=== PATIENT | female | born 1955 | race Caucasian/White ===

== ENCOUNTER 2016-06-22 16:49 | Emergency (ER) | payer OTHER ==
[~2016-06-22] VITALS: Wt 54.5 kg
[~2016-06-22 16:49] MED LIST: ALBU8.5H5 INH; NAPR-260 PO
--- NOTE | 2016-06-22 17:38 | RADRPT ---
PROCEDURE: CT Brain without contrast. CLINICAL INDICATION: Trauma. Pain. TECHNIQUE: Serial axial computed tomographic images of the brain was performed on a multidetector CT scanner from the skull base through the vertex without contrast. CTDlvol = 45 mGy and DLP = 720 m Gy-cm. One of the following 3 dose reduction techniques were used: Automated exposure control; adju stment of the mA and/or kV according to patient size; or use of iterative reconstruction technique. COMPARISON: 12/17/2013 FINDINGS: There is no fracture. The ventricles and sulci are normal in size and configuration for age. There is no midline shift. There is no acute stroke. There is mild degree of supratentorial periventric ular and subcortical white matter hypodensities greatest in the bilateral parietal lobes. No acute intracranial hemorrhage or abnormal extra-axial fluid collection. Visualized paranasal sinuses are clear. IMPRESSION: 1. No fracture. 2. No acute post-traumatic intracranial abnormality. 3. Nonspecific white matter changes most commonly seen with small vessel disease. RPTAT: [facility] .Demarco Hernadez MD, Date Time Electronically viewed and signed by .Demarco Hernadez MD, on 06/22/2016 17:38 .K/
[2016-06-22] MEDS ORDERED: TRAM50TA2 PO (17:53)
--- NOTE | 2016-06-22 17:55 | ERD ---
ER Documentation Chief Complaint Date/Time DATE: 06/22/16 TIME: 17:53 Chief Complaint HEAD INJURY FROM 0900 TODAY. NO LOC NO NECK OR BACK PAIN HPI This is a 60-year-old female who says she had a head injury this morning. The patient states she was cleaning in her room and the mirror on her dresser fell forward and hit her on the back of the head. She has a hematoma of the scalp but no laceration. She says she feels a little dizzy today. She states she felt a few seconds loss of consciousness. No headache no vomiting no focal neurological complaints no shortness of breath no excessive sleepiness. ROS All systems reviewed and are negative except as per history of present illness. Medications Home Meds Active Scripts Tramadol HCl (Tramadol HCl) 50 Mg Tablet, 50 MG PO Q6 Y for PAIN, #20 TAB Prov:CARLOS AGUIRRE DO 06/22/16 Naproxen* (Naprosyn*) 500 Mg Tablet, 500 MG PO BID Y for PAIN AND/OR INFLAMMATION, #30 TAB Prov:MELECIO ROLDAN MD 01/06/15 Albuterol Sulfate* (Albuterol Sulfate* HFA) 8.5 Gm Hfa.aer.ad, 1-2 PUFF INH Q4 Y for SHORTNESS OF BREATH, #1 EA Prov:MELECIO ROLDAN MD 01/06/15 Allergies Allergies: Coded Allergies: peanut (Verified Allergy, Unknown, 01/06/15) PMhx/Soc History of Surgery: Yes (C section, tonsillectomy) Anesthesia Reaction: No Hx Neurological Disorder: Yes (TIA) Hx Respiratory Disorders: Yes (ASTHMA) Hx Cardiac Disorders: No Hx Psychiatric Problems: No Hx Miscellaneous Medical Probl: No Hx Alcohol Use: No Hx Substance Use: Yes Hx Tobacco Use: Yes (11 STICKS A DAY) Smoking Status: Former smoker FmHx Family History: No coronary disease Physical Exam Vitals Vital Signs Date Time Temp Pulse Resp B/P Pulse Ox O2 Delivery O2 Flow Rate FiO2 06/22/16 16:54 98.9 102 21 150/63 98 Physical Exam Const: Well-developed, well-nourished Head: Small hematoma at the back of the head., normocephalic Eyes: Normal Conjunctiva, PERRLA, EOMI, normal sclera, no nystagmus ENT: Normal External Ears, Nose and Mouth, moist mucus membranes. Neck: Full range of motion. No meningismus, no lymphadenopathy. Resp: Clear to auscultation bilaterally, no wheezing, rhonchi, rales Cardio: Regular rate and rhythm, no murmurs, S1 S2 present Abd: Soft, non tender x 4, non distended. Normal bowel sounds, no guarding or rebound, no pulsitile abdominal masses or bruits Skin: No petechiae or rashes, no ecchymosis , no maculopapular rash Back: No midline or flank tenderness Ext: No cyanosis, or edema, FROM x 4, normal inspection, neurovascularly intact x 4 Neur: Awake and alert, STR 5/5 x 4, sensation intact x 4, no focal findings, cerebellum intact Psych: Normal Mood and Affect Procedures/MDM PROCEDURE: CT Brain without contrast. CLINICAL INDICATION: Trauma. Pain. TECHNIQUE: Serial axial computed tomographic images of the brain was performed on a multidetector CT scanner from the skull base through the vertex without contrast. CTDlvol = 45 mGy and DLP = 720 mGy-cm. One of the following 3 dose reduction techniques were used: Automated exposure control; adjustment of the mA and/or kV according to patient size; or use of iterative reconstruction technique. COMPARISON: 12/17/2013 FINDINGS: There is no fracture. The ventricles and sulci are normal in size and configuration for age. There is no midline shift. There is no acute stroke. There is mild degree of supratentorial periventricular and subcortical white matter hypodensities greatest in the bilateral parietal lobes. No acute intracranial hemorrhage or abnormal extra-axial fluid collection. Visualized paranasal sinuses are clear. IMPRESSION: 1. No fracture. 2. No acute post-traumatic intracranial abnormality. 3. Nonspecific white matter changes most commonly seen with small vessel disease. RPTAT: [facility] .Demarco Hernadez MD, Date Time Electronically viewed and signed by .Demarco Hernadez MD, on 06/22/2016 17:38 .K/ CC: CARLOS AGUIRRE DO Gave her head precautions Departure Diagnosis: Primary Impression: Acute head injury Encounter type: initial encounter Qualified Code: S09.90XA - Acute head injury, initial encounter Condition: Stable Patient Instructions: Concussion W/ Wake Up Referrals: DOCTOR,NOT ON STAFF (PCP) CARLOS AGUIRRE DO Jun 22, 2016 17:55
== END 2016-06-22 18:07 | disposition home or self-care (01) ==
LOC: FTE 16:49
DX: S09.90XA Unspecified injury of head, initial encounter (principal); J45.909 Unspecified asthma, uncomplicated; F17.210 Nicotine dependence, cigarettes, uncomplicated; R51 Headache; W22.8XXA Striking against or struck by other objects, initial encounter; Y92.9 Unspecified place or not applicable
CPT/HCPCS: 70450; Z7502

== ENCOUNTER 2017-05-11 08:51 | Emergency (ER) | END 2017-05-11 12:49 | disposition left against medical advice (07) ==

== ENCOUNTER 2018-05-15 21:19 | Emergency (ER) | payer OTHER ==
[~2018-05-15] VITALS: Wt 52.0 kg
[~2018-05-15 21:19] MED LIST changes: -NAPR-260 PO; +NAPR-985 PO; +TRAM50TA2 PO
[2018-05-15] MEDS ORDERED: CEPH-443 PO (22:20)
[2018-05-15] MEDS ORDERED: IBUP-1542 PO (22:20)
--- NOTE | 2018-05-15 22:36 | ERD ---
ER Documentation Chief Complaint Chief Complaint BLEEDING ABSCESS ON RIGHT BREAST HPI 62-year-old female presents here to emergency department for complaints of pus coming up from the nipple of the right breast area, sometimes has blood coming out of it, has been having on and off since in affected area denies any symptoms at this time. Patient is complaining of on and off pain sharp pain 4/10 scale, not better or worse with anything, last mammogram was 9 years ago. Patient denies any deformity in the breast area. ROS All systems reviewed and are negative except as per history of present illness. Medications Home Meds Active Scripts Ibuprofen* (Motrin*) 600 Mg Tab, 600 MG PO Q6H PRN for PAIN AND OR ELEVATED TEMP, #30 TAB Prov:SHAUNA PLEITEZ VALET CASHIER 05/15/18 Cephalexin* (Keflex*) 500 Mg Capsule, 500 MG PO QID for 10 Days, CAP Prov:SHAUNA PLEITEZ VALET CASHIER 05/15/18 Tramadol HCl (Tramadol HCl) 50 Mg Tablet, 50 MG PO Q6 PRN for PAIN, #20 TAB Prov:CARLOS AGUIRRE DO 06/22/16 Naproxen* (Naprosyn*) 500 Mg Tablet, 500 MG PO BID PRN for PAIN AND/OR INFLAMMATION, #30 TAB Prov:MELECIO ROLDAN MD 01/06/15 Albuterol Sulfate* (Albuterol Sulfate* HFA) 8.5 Gm Hfa.aer.ad, 1-2 PUFF INH Q4 PRN for SHORTNESS OF BREATH, #1 EA Prov:MELECIO ROLDAN MD 01/06/15 Allergies Allergies: Coded Allergies: peanut (Verified Allergy, Unknown, 01/06/15) PMhx/Soc History of Surgery: Yes (C section x 3, tonsillectomy) Anesthesia Reaction: No Hx Neurological Disorder: Yes (TIA) Hx Respiratory Disorders: Yes Hx Cardiac Disorders: No Hx Psychiatric Problems: No Hx Miscellaneous Medical Probl: No Hx Alcohol Use: No Hx Substance Use: Yes (Cocaine last one yesterday) Hx Tobacco Use: Yes (11 STICKS A DAY) Smoking Status: Current every day smoker FmHx Family History: No diabetes, No coronary disease, No other Physical Exam Vitals Vital Signs Date Temp Pulse Resp B/P (MAP) Pulse Ox O2 O2 Flow FiO2 Time Delivery Rate 05/15/18 98.1 84 18 160/74 98 21:23 (102) Physical Exam GENERAL: The patient is well developed and appropriate for usual state of health, in no apparent distress. CHEST: Clear to auscultation bilaterally. There are no rales, wheezes or rhonchi. Mild erythema noted in the nipple area, purulent discharge noted to be coming up of the right breast with some serosanguineous discharge. No palpable cyst or abscess at this time. HEART: Regular rate and rhythm. No murmurs, clicks, rubs or gallops. No S3 or S4. ABDOMEN: Soft, nontender and nondistended. Good bowel sounds. No rebound or guarding. No gross peritonitis. No gross organomegaly or masses. No Mendoza sign or McBurney point tenderness. BACK: No midline or flank tenderness. EXTREMITIES: Equal pulses bilaterally. There is no peripheral clubbing, cyanosis or edema. No focal swelling or erythema. Full range of motion. Grossly neurovascularly intact. NEURO: Alert and oriented. Cranial nerves 2-12 intact. Motor strength in all 4 extremities with 5/5 strength. Sensation grossly intact. Normal speech and gait. SKIN: There is no apparent rash or petechia. The skin is warm and dry. HEMATOLOGIC AND LYMPHATIC: There is no evidence of excessive bruising or lymphedema. No gross cervical, axillary, or inguinal lymphadenopathy. Procedures/MDM Medical decision making: Symptoms consistent with some form of mastitis, no abscess noted at this time, no symptoms of any sepsis. Patient was advised to see breast specialist for possible mammogram or ultrasound for further evaluation and management, Keflex was given to treat infection, patient was advised to return to emergency department for new or worsening symptoms. Disposition: Home. Stable Departure Diagnosis: Primary Impression: Mastitis Condition: Stable Patient Instructions: SHAUNA Horta NP May 15, 2018 22:36
== END 2018-05-15 22:34 | disposition home or self-care (01) ==
LOC: FTE 21:19
DX: N61.0 Mastitis without abscess (principal); F17.210 Nicotine dependence, cigarettes, uncomplicated; Z86.73 Personal history of transient ischemic attack (TIA), and cerebral infarction without residual deficits; Z91.010 Allergy to peanuts
CPT/HCPCS: 99283